=== PATIENT | male | born 1970 | race African-American/Black ===

== ENCOUNTER → 2021-07-10 | Outpatient (CLI) | payer BC ==
[2021-07-10 06:55] LABS: BASOPHILS % 1.2 % (0.0-2.0); EOSINOPHILS % 4.2 % (0.0-5.0); HEMATOCRIT. 33.8 % (42.0-52.0); HEMOGLOBIN. 11.8 g/dL (14.0-18.0); LYMPHOCYTES % 49.6 % (20.0-50.0); MEAN CORPUSCULAR HEMOGLOBIN 30.3 pg (28.0-32.0); MEAN CORPUSCULAR VOLUME 86.7 fL (80.0-94.0); MEAN PLATELET VOLUME 7.3 fl (7.4-10.4); MONOCYTES % 11.8 % (2.0-8.0); NEUTROPHILS % 33.2 % (40.0-76.0); PLATELET 206 x1000/uL (130-400)
[2021-07-10 06:57] LABS: CLARITY URINE CLEAR (CLEAR); COLOR URINE YELLOW (YELLOW); KETONES URINE NEGATIVE (NEGATIVE); LEUKOCYTE ESTERASE URINE NEGATIVE (NEGATIVE); NITRITE URINE NEGATIVE (NEGATIVE); OCCULT BLOOD URINE NEGATIVE (NEGATIVE); PROTEIN URINE NEGATIVE (NEGATIVE); SPECIFIC GRAVITY URINE 1.023 (1.005-1.030); UROBILINOGEN URINE 0.2 E.U./dL (0.2-1.0)
[2021-07-10 07:10] LABS: CHLORIDE 105 mEq/L (98-107)
[2021-07-10 07:18] LABS: LDL CHOLESTEROL 102 mg/dL (5-100); TOTAL IRON BINDING CAPACITY 337 ug/dL (250-450)
[2021-07-10 07:20] LABS: HDL CHOLESTEROL 63 mg/dL (40-59)
[2021-07-10 07:26] LABS: FERRITIN 429 ng/mL (22-322); PROSTRATE SPECIFIC AG TOTAL 0.76 ng/mL (0.0-4.0)
[2021-07-10 07:37] LABS: HEPATITIS B SURFACE ANTIGEN NEGATIVE
[2021-07-10 07:42] LABS: VITAMIN B12 SERUM 1012 pg/mL (211-911)
== END | disposition home or self-care (01) ==
LOC: LAB 06:21
PROVIDERS: ATTEND Internal Medicine Geriatric Medicine
DX: Z12.5 Encounter for screening for malignant neoplasm of prostate (principal); Z00.01 Encounter for general adult medical examination with abnormal findings; R00.1 Bradycardia, unspecified; N39.0 Urinary tract infection, site not specified
CPT/HCPCS: 36415; 80053; 80061; 81003; 82607; 82652; 82728; 82746; 83036; 83540; 83550; 84153; 84443; 85025; 86592; 86705; 86709; 86803; 87340; G0103